=== PATIENT | female | born 1985 | race Caucasian/White ===

== ENCOUNTER 2020-07-06 11:16 | Emergency (ER) | payer OTHER, SELFPAY ==
[2020-07-06 11:24] VITALS: BP 115/77; PULSE 80; RESP 16; TEMP 36.7; O2SAT 99; BMI 23.8
--- NOTE | 2020-07-06 12:11 | ED.DENTAL ---
HPI - Dental/Oral General Chief complaint: Dental/Oral Stated complaint: tooth abscess Time Seen by Provider: 07/06/20 12:10 Source: patient Mode of arrival: ambulatory Limitations: no limitations History of Present Illness HPI Narrative: 34 y/o with known cavity to upper left molar is presenting with increased pain to the area for the last 2 days. She wears a partial denture and the hook on the denture is irritating the cavity. She has mild swelling and is nervous about developing an abscess. She has an appointment with her dentist to get the cavity filled next week. She denies fever, chills, facial swelling. MD Complaint: tooth pain Location: Tooth # Teeth map: 1. tenderness, hx partial denture that is causing irritation to tooth with a cavity. she is concerned there may be a developing abscess which she has a history of Onset (ago): day(s) (2) Duration: constant Severity: severe Severity scale (1-10): 9 Relieving factors: NSAIDs Exacerbating factors: chewing Context: history of dental caries and poor dental care Associated symptoms: gum swelling Treatment prior to arrival: none Related Data Previous Rx's Medication Instructions Recorded penicillin V potassium 500 mg PO Q8H 7 Days #21 tab NS 07/06/20 Allergies Allergy/AdvReac Type Severity Reaction Status Date / Time METAL Allergy Mild RASH Uncoded 06/10/20 19:32 Review of Systems Review of Systems: Constitutional: No Fever, No Chills ENT/Mouth: No sore throat, No Rhinorrhea, No Swallowing Difficulty Eyes: No Eye Pain, No Swelling, No Redness Cardiovascular: No Chest Pain, No SOB, No Orthopnea, No Edema Respiratory: No Cough, No Sputum, No Wheezing, No dyspnea Gastrointestinal: No Nausea, No Vomitin Skin: No Skin Lesions, No rash Neuro: No Weakness, No Numbness, No Dizziness, + Headache PMFSH Past Medical History Attestation statement: The following information was validated with the patient. Medical History (Updated 07/06/20 @ 12:35 by COLUMBA Pisano) Dental caries No known health problems Social History Social History Advance Directives: No Advance Directives Information Provided: Yes Physical Exam Vital Signs: Vital Signs: Vital Signs Temp Pulse Resp BP Pulse Ox 07/06/20 11:24 98.0 F 80 16 115/77 99 Body Mass Index 23.8 Appearance: Alert. Oriented X3. No acute distress. ENT: dental tenderness of #14 with mild gingival swelling. no evidence of abscess. no drainage. Neck: Normal inspection. Neck supple. Respiratory: No respiratory distress. Skin: Skin warm and dry. Normal skin color. Normal skin turgor. No rashes. Neuro: Oriented X 3. Course Course Course Narrative: dental caries with irritation due to denture - will give Rx for abx for possible developing infection given gingival tenderness. she has appointment with dentist next week, encouraged to f/u with them sooner. she agrees wtih plan. MDM - Dental/Oral Differential Diagnosis Differential diagnosis: Likely gingival abscess, dental caries, toothache, dental abscess, fracture of tooth and aphthous ulcer Discharge Plan Discharge Clinical Impression: Dental caries, Toothache Patient Disposition: Home, Self-Care Instructions: Dental Abscess (ED), Toothache (ED) Additional Instructions: Follow up with your Dentist [place]. If you develop facial swelling, fever, chills, difficulty swallowing call 911 or come back to the ER for further evaluation. Continue taking Motrin and Tylenol around the clock. Use topical Orajel for pain as well. Use ice to the area several times per day. Prescriptions: New penicillin V potassium 500 mg tablet 500 mg PO Q8H 7 Days Qty: 21 RF: 0
[2020-07-06] MEDS: Penicillin V Potassium 250 MG TABLET 500 MG PO (12:41)
== END 2020-07-06 12:44 | disposition home or self-care (01) ==
PROVIDERS: Emergency Provider Emergency Medicine
DX: K02.9 Dental caries, unspecified (principal); K08.89 Other specified disorders of teeth and supporting structures
CPT/HCPCS: 99283

== ENCOUNTER 2020-09-13 16:03 | Outpatient (REF) | payer OTHER, SELFPAY | END 2020-09-13 16:04 | disposition home or self-care (01) | LOC: HO.LAB 16:03 | PROVIDERS: Visit Provider Internal Medicine | DX: Z20.828 Contact with and (suspected) exposure to other viral communicable diseases (principal) | CPT/HCPCS: C9803; U0003 ==

== ENCOUNTER 2020-12-05 15:30 | Emergency (ER) | payer OTHER, SELFPAY ==
--- NOTE | ~2020-12-05 | US_ITS ---
EXAMINATION: ULTRASOUND PELVIC TRANSABDOMINAL/TRANSVAGINAL COMPLETE. CLINICAL INFORMATION: Pelvic pain. COMPARISON: None TECHNIQUE: Multiple 2-D grayscale and Doppler transabdominal/transvaginal pelvic ultrasound images were obtained. FINDINGS: Uterus: Anteverted/anteflexed measuring 7.9 x 4.2 x 6.3 cm. A small subserosal fibroid at the level the fundus measures 0.9 x 0.8 x 0.9 cm. The endometrium measures up to 0.2 cm without focal abnormality. The cervix is closed demonstrating nabothian cysts without other significant abnormality. Right ovary: 3.4 x 2.4 x 3.2 cm with a volume of 13.1 mL. Doppler interrogation showed no abnormal vascular flow. Left ovary: 2.8 x 2.0 x 2.0 cm with a volume of 5.8 cm. Doppler interrogation showed no abnormal vascular flow. Urinary bladder: Mildly distended without focal abnormality. US/US pelvic complete IMPRESSION: Unremarkable pelvic ultrasound.
--- NOTE | ~2020-12-05 | US_ITS ---
EXAMINATION: ULTRASOUND PELVIC TRANSABDOMINAL/TRANSVAGINAL COMPLETE. CLINICAL INFORMATION: Pelvic pain. COMPARISON: None TECHNIQUE: Multiple 2-D grayscale and Doppler transabdominal/transvaginal pelvic ultrasound images were obtained. FINDINGS: Uterus: Anteverted/anteflexed measuring 7.9 x 4.2 x 6.3 cm. A small subserosal fibroid at the level the fundus measures 0.9 x 0.8 x 0.9 cm. The endometrium measures up to 0.2 cm without focal abnormality. The cervix is closed demonstrating nabothian cysts without other significant abnormality. Right ovary: 3.4 x 2.4 x 3.2 cm with a volume of 13.1 mL. Doppler interrogation showed no abnormal vascular flow. Left ovary: 2.8 x 2.0 x 2.0 cm with a volume of 5.8 cm. Doppler interrogation showed no abnormal vascular flow. Urinary bladder: Mildly distended without focal abnormality. US/US transvaginal IMPRESSION: Unremarkable pelvic ultrasound.
--- NOTE | ~2020-12-05 | US_ITS ---
EXAMINATION: ULTRASOUND PELVIC TRANSABDOMINAL/TRANSVAGINAL COMPLETE. CLINICAL INFORMATION: Pelvic pain. COMPARISON: None TECHNIQUE: Multiple 2-D grayscale and Doppler transabdominal/transvaginal pelvic ultrasound images were obtained. FINDINGS: Uterus: Anteverted/anteflexed measuring 7.9 x 4.2 x 6.3 cm. A small subserosal fibroid at the level the fundus measures 0.9 x 0.8 x 0.9 cm. The endometrium measures up to 0.2 cm without focal abnormality. The cervix is closed demonstrating nabothian cysts without other significant abnormality. Right ovary: 3.4 x 2.4 x 3.2 cm with a volume of 13.1 mL. Doppler interrogation showed no abnormal vascular flow. Left ovary: 2.8 x 2.0 x 2.0 cm with a volume of 5.8 cm. Doppler interrogation showed no abnormal vascular flow. Urinary bladder: Mildly distended without focal abnormality. US/US pelvic ovarian doppler IMPRESSION: Unremarkable pelvic ultrasound.
[2020-12-05 16:08] VITALS: BP 127/74; PULSE 83; RESP 18; TEMP 37; O2SAT 98; BMI 24.7
--- NOTE | 2020-12-05 16:19 | ED_ITS ---
HPI - Female Genitourinary General Chief complaint: Vaginal Bleeding Stated complaint: vag infection Time Seen by Provider: 12/05/20 15:59 Source: patient Mode of arrival: ambulatory History of Present Illness HPI Narrative: 35 y.o. F with no significant PMH presenting to the ED with pelvic pain and vaginal discharge. Pt. is a . She states last week she ended her period and this week she has been having clear watery discharge with blood. It has no foul smell. SHe denies hx of STDs. No itching, irritation. No vaginal lesions. She is having pelvic cramping x 1 week that is intermittent. She endorses a fever several days ago, feeling more fatigued. SHe denies CP, SOB, vomiting, diarrhea, dysuria, hematuria. She is sexually active. She is concerned she may be having a possible miscarriage. She denies hx of irregular periods. SHe is supposed to wear the control patch but states she has been noncompliant with using it. Related Data : 4 Para: 2 Previous Rx's Medication Instructions Recorded penicillin V potassium 500 mg PO Q8H 7 Days #21 tab NS 07/06/20 Allergies Allergy/AdvReac Type Severity Reaction Status Date / Time METAL Allergy Mild RASH Uncoded 06/10/20 19:32 Review of Systems Constitutional: Constitutional: Denies chills, Reports fatigue and Reports fever(s) Eyes: Eyes: Reports no additional eye complaints ENT: Denies dizziness Cardiovascular: Cardiovascular: Denies chest pain and Denies dyspnea Respiratory: Respiratory: Denies dyspnea Gastrointestinal: Gastrointestinal: Denies diarrhea, Denies nausea and Denies vomiting Genitourinary: Genitourinary: Reports abnormal vaginal bleeding, Reports vaginal discharge, Denies vaginal odor and Denies vaginal pruritus Musculoskeletal: Musculoskeletal: Reports no additional musculoskeletal complaints Neurologic: Denies dizziness Endocrine: Endocrine: Reports fatigue Hematologic/Lymphatic: Hematologic/Lymphatic: Denies easy bleeding and Denies easy bruising Allergic/Immunologic: Allergic/Immunologic: Reports no additional allergic/immunologic complaints PMFSH Past Medical History Medical History Dental caries No known health problems : 4 Para: 2 Hx Last Menstrual Period: last week Social History Social History Smoking Status: Light tobacco smoker Use of substances other than those prescribed or required for medical reasons: No Advance Directives: No Advance Directives Information Provided: Yes Physical Exam Vital Signs: Vital Signs: Last Vital Signs Temp 98.6 F 12/05/20 16:08 Pulse 83 12/05/20 16:08 Resp 18 12/05/20 16:08 BP 127/74 12/05/20 16:08 Pulse Ox 98 12/05/20 16:08 Body Mass Index 24.7 Const: Other: sitting upright children at bedside General: cooperative HENMT: Head: Yes atraumatic Eyes: Pupils: Equal, round and reactive pupils present Neck: Neck: Yes supple Resp: Effort & Inspection: normal respiratory effort and able to speak in complete sentences Cardio: Rate: regular rate GI: Inspection: No distended Palpation (GI): Soft to palpation, nontender and no guarding : Other: normal external genitalia cervical os is closed mild vaginal bleeding with clear discharge coming from os, no pooling no CMT mild right adenexal tenderness Back/Spine/Pelvis: Other: normal ROM Skin: Rashes: no rashes Neuro: Other: A&O x4 Cranial nerves: Yes Equal, round and reactive pupils present Extrem: General: Yes full ROM Psych: Attitude: cooperative Course Course Course Narrative: Labs unremarkable, trichomonas is negative, UA shows + wbc however this is most likely due to vaginal discharge rather than a UTI since she does not have dysuria. negative. Sign out given at 18:00 pending formal read of her pelvic US and re-evaluation. MDM - Female Genitourinary MDM Narrative Medical decision making narrative: 35 y.o. F presenting to the ED with concern for irregular vaginal bleeding with vaginal discharge VS stable, not toxic appearing, hemodynamically stable WIll plan for basic labs. WIll check HCG quant to assess for . WIll check UA for signs of infection. WIll evaluate for bacterial vaginosis, trichomonal infection, gonorrhea and chlamydia. Will send for US to r/o ovarian pathology, TOA. No CMT to suggest PID. pt. is afebrile. Abdomen is soft, nontender, lower suspicion for acute appendicitis. Symptoms could be due to dysfunctional uterine bleeding since pt. has been irregular with her control patches. Will r/o ectopic with HCG level. Lab Data Result diagrams: 12/05/20 16:35 12/05/20 16:35 Labs: Lab Results 12/05/20 12/05/20 12/05/20 Range/Units 16:35 16:35 16:35 WBC 7.5 (4.8-10.8) X10*3/uL RBC 4.04 L (4.20-5.50) X10*6/uL Hgb 11.5 L (12.0-16.0) g/dl Hct 34.8 L (37-47) % MCV 86.1 (80-98) fL MCH 28.5 (27.0-33.0) pg MCHC 33.0 (31.0-35.0) g/dl RDW 11.7 (11.0-16.0) % Plt Count 295 (160-400) X10*3/uL MPV 10.6 (9.4-12.3) fL Immature Gran % (Auto) 0.3 (0.0-0.4) % Neut % (Auto) 66.2 (45-73) % Lymph % (Auto) 24.4 (20-40) % [place] % (Auto) 7.5 (2-11) % Eos % (Auto) 1.2 (0-4) % Baso % (Auto) 0.4 (0-2) % Lymph # (Auto) 1.8 (1.2-4.9) X10*3/uL [place] # (Auto) 0.6 (0.1-1.2) X10*3/uL Eos # (Auto) 0.1 (0.0-0.4) X10*3/uL Baso # (Auto) 0.0 (0.0-0.2) X10*3/uL Abs Immat Gran (auto) 0.02 (0.00-0.03) X10*3/uL Absolute Neuts (auto) 5.0 (2.0-8.3) X10*3/uL Absolute Nucleated RBC 0.000 (0.0-0.012) X10*3/uL Nucleated RBC % (auto) 0.0 (0.0-0.2) /100WBC Sodium 140 (135-145) mmol/L Potassium 4.3 (3.3-5.1) mmol/L Chloride 103 (96-108) mmol/L Carbon Dioxide 31 H (22-29) mmol/L Anion Gap 10 L (12-20) BUN 12 (9-16) mg/dL Creatinine 1.02 (0.5-1.4) mg/dL Estim Creat Clear Calc 66.9 Estimated GFR > 60 Random Glucose 91 (60-115) mg/dL Calcium 8.8 (8.4-10.2) mg/dL Beta HCG, Quant < 2 mIU/mL Urine Color DARK YELLOW Urine Appearance CLEAR Urine pH 6.0 (5.0-8.0) Ur Specific [place] >= 1.030 H (1.005-1.025) Urine Protein TRACE (NEG-TRACE) MG/DL Urine Glucose (UA) NEG (NEG) MG/DL Urine Ketones 5 (NEG) MG/DL Urine Blood 3+ H (NEG) Urine Nitrite NEG (NEG) Ur Leukocyte Esterase 1+ H (NEG) Urine RBC 0-2 (0) /HPF Urine WBC 10-14 H (0-4) /HPF Ur Squamous Epith Cells 1+ /LPF Calcium Oxalate Crystal 3+ /LPF Urine Bacteria 2+ /LPF Urine Mucus 3+ /LPF Discharge Plan Discharge Patient Disposition: Home, Self-Care Instructions: Dysfunctional Uterine Bleeding (ED), Vaginal Discharge (ED) Additional Instructions: PLease call the OBGYN office tomorrow to discuss today's visit. Please return if your symptoms worsen, increased vaginal discharge, pelvic pain, fevers, vomiting, dizziness, weakness or any other concerning symptoms. We have sent off blood work which was unremarkable, negative for yeast or trichomonal infection. Gonorrhea and chlamydia swabs are pending if these return positive we will call you because you will need antibiotics. Your was negative. Your ultrasound showed. Prescriptions: No Action penicillin V potassium 500 mg tablet 500 mg PO Q8H 7 Days Qty: 21 RF: 0 Referrals: Sami Patrick MD [Physician] - 2 days (To discuss your dysfunctional vaginal bleeding )
[2020-12-05 16:44] LABS: MANUAL DIFF FLAG NO
[2020-12-05 16:46] LABS: Basophils Percent Auto 0.4 % (0-2); Eosinophils Absolute Auto 0.1 X10*3/uL (0.0-0.4); Eosinophils Percent Auto 1.2 % (0-4); Hematocrit 34.8 % (37-47); Hemoglobin 11.5 g/dl (12.0-16.0); Imm Gran Abs Auto 0.02 X10*3/uL (0.00-0.03); Imm Gran Pct Auto 0.3 % (0.0-0.4); Lymphocytes Absolute Auto 1.8 X10*3/uL (1.2-4.9); Lymphocytes Percent Auto 24.4 % (20-40); Mean Corpuscular Hemoglobin 28.5 pg (27.0-33.0); Mean Corpuscular Volume 86.1 fL (80-98); Mean Platelet Volume 10.6 fL (9.4-12.3); Monocytes Absolute Auto 0.6 X10*3/uL (0.1-1.2); Monocytes Percent Auto 7.5 % (2-11); Neutrophils Percent Auto 66.2 % (45-73); Platelet Count 295 X10*3/uL (160-400); Red Blood Count 4.04 X10*6/uL (4.20-5.50); Red Cell Distribution Width 11.7 % (11.0-16.0); White Blood Count 7.5 X10*3/uL (4.8-10.8)
[2020-12-05 17:02] LABS: Glucose Urine UA NEG (NEG); Leukocyte Esterase Urine 1+ (NEG); Nitrite Urine NEG (NEG); Specific Gravity - Urine >= 1.030 (1.005-1.025); UACC Culture Trigger YES; Urine Blood 3+ (NEG); Urine Ketones 5 MG/DL (NEG); Urine Protein TRACE MG/DL (NEG-TRACE)
[2020-12-05 17:03] LABS: Appearance Urine CLEAR; Color Urine DARK YELLOW
[2020-12-05 17:09] LABS: Anion Gap 10 (12-20); Blood Urea Nitrogen 12 mg/dL (9-16); Calcium 8.8 mg/dL (8.4-10.2); Carbon Dioxide 31 mmol/L (22-29); Chloride 103 mmol/L (96-108); Creatinine Clr Calc Pharmacy 66.9; Estimated Glomerular Filt Rate > 60; Glucose Random 91 mg/dL (60-115); Potassium 4.3 mmol/L (3.3-5.1); Sodium 140 mmol/L (135-145)
[2020-12-05 17:20] LABS: HCG Quantitative < 2 mIU/mL
[2020-12-05 17:33] LABS: Bacteria Urine 2+ /LPF; Calcium Oxalate Crystals Urine 3+ /LPF; Mucus Urine 3+ /LPF; RBC Urine 0-2 /HPF (0); Squamous Epithelial Cell Urine 1+ /LPF; UACC CULT YES
[2020-12-05] MEDS: Phenazopyridine HCL 200 MG TABLET PO (19:29)
[2020-12-05] MEDS: Nitrofurantoin Monohyd/M-Cryst 100 MG CAPSULE PO (19:29)
[2020-12-06 08:45] LABS: BV Int Neg Control Negative (Negative); BV Int Pos Control Positive (Positive)
[2020-12-06 09:17] LABS: CT PCR DETECTED (Not Detect.); NG PCR NOT DETECTED (Not Detect.)
== END 2020-12-05 19:37 | disposition home or self-care (01) ==
PROVIDERS: Physician Assistant Medical; Emergency Provider Internal Medicine; PCP Internal Medicine
DX: N93.8 Other specified abnormal uterine and vaginal bleeding (principal); N39.0 Urinary tract infection, site not specified; A74.9 Chlamydial infection, unspecified; A59.9 Trichomoniasis, unspecified; F17.210 Nicotine dependence, cigarettes, uncomplicated
CPT/HCPCS: 36415; 76830; 76856; 80048; 81001; 84702; 85025; 87086; 87480; 87491; 87510; 87591; 87660; 93975; 99284

== ENCOUNTER 2021-01-29 15:10 | Emergency (ER) | payer OTHER, SELFPAY ==
--- NOTE | ~2021-01-29 | XR_ITS ---
EXAMINATION: XR RIBS, RIGHT CLINICAL INFORMATION: History of fell off horse. Suspected fracture on the right hemithoracic ribs. COMPARISON: None TECHNIQUE: 3 views of the right ribs were obtained. FINDINGS: Lungs are clear. No consolidation, pneumothorax, or pleural effusion. The cardiomediastinal silhouette and pulmonary vasculature are normal. Osseous structures are unremarkable. Subtle contour deformity is present along the posterolateral aspect of the right fourth and fifth ribs, may represent subtle nondisplaced fracture.. XR/XR ribs RT min 3V w CXR1V IMPRESSION: Possible subtle nondisplaced fracture involving posterolateral aspect of the right fourth and fifth ribs. No radiographic evidence of any hemopneumothorax or lung contusion.
[2021-01-29 15:18] VITALS: BP 119/72; PULSE 80; RESP 16; TEMP 36.9; O2SAT 100; BMI 24.7
[2021-01-29 16:15] VITALS: BP 116/70; PULSE 75; RESP 16; TEMP 36.8; O2SAT 100; BMI 24.7
[2021-01-29 16:26] VITALS: BP 116/70; PULSE 77; RESP 16; TEMP 36.8; O2SAT 100
--- NOTE | 2021-01-29 16:54 | ED_ITS ---
HPI - Fall General Chief Complaint: Fall Stated Complaint: ?Rib fx/horse falling on pt Time Seen by Provider: 01/29/21 16:49 Source: patient Mode of arrival: ambulatory Limitations: no limitations History of Present Illness HPI Narrative: Patient was riding her horse when the horse reared when she fell off and the horse fell on the right side of her chest. She had a helmet on and there was no loss of consciousness. She is here complaining of some right-sided chest discomfort. No shortness of breath, cough, dizziness, headache, vision changes or vomiting. Denies abdominal pain Related Data Previous Rx's Medication Instructions Recorded penicillin V potassium 500 mg PO Q8H 7 Days #21 tab NS 07/06/20 nitrofurantoin monohyd/m-cryst 100 mg PO Q12H 7 Days #14 cap 12/05/20 [Macrobid] phenazopyridine [Pyridium] 200 mg PO TID PRN #6 tab 12/05/20 doxycycline hyclate 100 mg PO BID 10 Days #20 cap 12/09/20 metronidazole [Flagyl] 500 mg PO BID 7 Days #14 tab 12/09/20 cyclobenzaprine 10 mg PO TID PRN #10 tab 01/29/21 ibuprofen 600 mg PO Q8H PRN #20 tab 01/29/21 lidocaine [Lidoderm] 1 patch TOPICAL DAILY #15 ea 01/29/21 Allergies Allergy/AdvReac Type Severity Reaction Status Date / Time METAL Allergy Mild RASH Uncoded 06/10/20 19:32 Review of Systems Review of Systems: Yes all other systems are reviewed and are negative Constitutional: Constitutional: Reports no additional constitutional complaints, Denies body ache(s), Denies chills, Denies fever(s), Denies headache(s) and Denies weakness Eyes: Eyes: Reports no additional eye complaints and Denies change in vision ENT: Reports system reviewed and no additional complaints, except as documented, Denies dizziness, Denies headache(s), Denies nasal congestion, Denies nasal discharge and Denies neck pain Cardiovascular: Cardiovascular: Reports no additional cardiovascular complaints, Reports chest pain, Denies leg edema and Denies dyspnea Respiratory: Respiratory: Reports no additional respiratory complaints, Denies cough and Denies dyspnea Gastrointestinal: Gastrointestinal: Reports no additional gastrointestinal complaints, Denies abdominal pain, Denies diarrhea, Denies nausea and Denies vomiting Genitourinary: Genitourinary: Reports no additional female genitourinary complaints and Denies urinary incontinence Musculoskeletal: Musculoskeletal: Reports no additional musculoskeletal complaints, Denies back pain, Denies arthralgias, Denies joint swelling, Denies neck pain, Denies numbness and Denies tingling Integumentary/Breasts: Skin/Breast: Reports system reviewed and no additional complaints, except as docu and Denies rash Neurologic: Reports system reviewed and no additional complaints, except as documented, Denies Abnormal speech present, Denies dizziness, Denies headache(s), Denies numbness, Denies tingling and Denies weakness PMFSH Past Medical History Attestation statement: The following information was validated with the patient. Source: old records reviewed and nursing notes reviewed Medical History Dental caries No known health problems Social History Social History Alcohol intake: never Smoking Status: Current every day smoker Smoked in Last 30 Days: Yes Use of substances other than those prescribed or required for medical reasons: No Advance Directives: No Advance Directives Information Provided: Yes Patient : No Physical Exam Vital Signs: Vital Signs: Last Vital Signs Temp 98.2 F 01/29/21 16:26 Pulse 77 01/29/21 16:26 Resp 16 01/29/21 16:26 BP 116/70 01/29/21 16:26 Pulse Ox 100 01/29/21 16:26 Body Mass Index 24.7 Const: General: cooperative, healthy appearing, comfortable and no acute distress Orientation/consciousness: patient oriented x3 Limitations: no limitations HENMT: Head: Yes normal to inspection Ears: hearing grossly normal bilaterally General nose exam: Normal external nose present Face and sinus: Yes normal facial exam Mouth: Normal oral and palatal mucosa present Throat: Yes posterior oropharynx normal Eyes: General: appearance normal, both eyes and all related structures Pupils: Equal, round and reactive pupils present Neck: Neck: Yes normal visual inspection Chest: Other: Right lateral rib pain just under the right breast with no ecchymosis or crepitus. Chest palpation & inspection: normal inspection of the chest Resp: Effort & Inspection: normal respiratory effort Auscultation: clear to auscultation bilaterally Cardio: Rate: regular rate Rhythm: regular rhythm Peripheral pulses: Peripheral pulses 2+ throughout GI: Inspection: Yes normal to inspection Palpation (GI): Soft to palpation and nontender Auscultation: normal bowel sounds Back/Spine/Pelvis: Thoracic/Lumbar Spine: thoracic and lumbar spine normal to inspection Skin: General skin exam: no rashes or lesions noted Neuro: General: patient oriented x3, no focal motor deficits and normal sensation to monofilament Cranial nerves: Yes Equal, round and reactive pupi ls present Cognition (Neuro): normal cognition Speech: No Abnormal speech present Gait exam (Neuro): Normal gait present Motor exam (neuro): 5/5 motor strength present throughout Extrem: General: Yes normal to inspection Course Course Course Narrative: Right-sided chest pain status post his injury. Will check imaging, provide analgesia and reassess 1930-X-ray shows Possible subtle nondisplaced fracture involving posterolateral aspect of the right fourth and fifth ribs. No radiographic evidence of any hemopneumothorax or lung contusion. Discussed findings with the patient. Recommended analgesia for home and supportive care. Reviewed worrisome signs and symptoms of when to return to the emergency department. Comfortable discharge home. MDM - Fall Medical Records Attestation: I reviewed the patient's medical records. Lab Data Attestation: I reviewed the patient's lab results. Imaging Data rib x-ray: Attestation: I personally reviewed and interpreted this imaging study as follows: Radiologist's impression: Possible subtle nondisplaced fracture involving posterolateral aspect of the right fourth and fifth ribs. No radiographic evidence of any hemopneumothorax or lung contusion. Discharge Plan Discharge Clinical Impression: Rib fracture Patient Disposition: Home, Self-Care Instructions: Rib Fracture (ED) Additional Instructions: Ice to the area Prescriptions: New cyclobenzaprine 10 mg tablet 10 mg PO TID PRN (Reason: muscle spasm) Qty: 10 RF: 0 lidocaine [Lidoderm] 5 % adhesive patch,medicated 1 patch topical DAILY Qty: 15 RF: 0 ibuprofen 600 mg tablet 600 mg PO Q8H PRN (Reason: fever or pain) Qty: 20 RF: 0 No Action penicillin V potassium 500 mg tablet 500 mg PO Q8H 7 Days Qty: 21 RF: 0 nitrofurantoin monohyd/m-cryst [Macrobid] 100 mg capsule 100 mg PO Q12H 7 Days Qty: 14 RF: 0 phenazopyridine [Pyridium] 200 mg tablet 200 mg PO TID PRN (Reason: pain) Qty: 6 RF: 0 doxycycline hyclate 100 mg capsule 100 mg PO BID 10 Days Qty: 20 RF: 0 metronidazole [Flagyl] 500 mg tablet 500 mg PO BID 7 Days Qty: 14 RF: 0 Referrals: Physician,None [Primary Care Provider] - 2 days Interventions: ED Discharge Assessment Last Done: 01/29/21 18:23 Discharge Date/Time: 01/29/21 18:24
[2021-01-29] MEDS: Ketorolac Tromethamine 60 MG/2 ML VIAL IM (16:57)
[2021-01-29] MEDS: Lidocaine 4 % Patch ADH..PATCH 1 PATCH TRANSDERMA (18:15)
== END 2021-01-29 18:24 | disposition home or self-care (01) ==
PROVIDERS: Emergency Provider Emergency Medicine
DX: S22.41XA Multiple fractures of ribs, right side, initial encounter for closed fracture (principal); V80.010A Animal-rider injured by fall from or being thrown from horse in noncollision accident, initial encounter; Y93.52 Activity, horseback riding; Y92.73 Farm field as the place of occurrence of the external cause; Y99.9 Unspecified external cause status
CPT/HCPCS: 71101; 96372; 99284; J1885